=== PATIENT | female | born 1980 | race African-American/Black ===

== ENCOUNTER 2017-08-03 11:46 | Emergency (ER) | payer MEDICAID ==
[~2017-08-03 11:46] MED LIST: BENZ100 PO; CYCL1TAB29 PO; FERR325T PO; IBUP-232 PO; MMW SSP; PREN0.01 PO
[2017-08-03 11:48] VITALS: BP 161/89; PULSE 84; RESP 15; TEMP 98.4; O2SAT 100
[2017-08-03] MEDS ORDERED: NITROGLYCERIN 2% OINT 1 GM PACKET TOPICAL ONE (12:15)
[2017-08-03] MEDS ORDERED: SODIUM CHLORIDE 0.9% FLUSH 10 ML FLUSH IVF PRN (12:15)
[2017-08-03] MEDS ORDERED: ASPIRIN 325 MG TAB PO ONE (12:15)
[2017-08-03 12:48] VITALS: BP_SYST 130; BP_SYST 134; BP_DIAS 89; BP_DIAS 91; PULSE 68; PULSE 70; RESP 16; RESP 18; O2SAT 100; O2SAT 98
[2017-08-03 12:54] LABS: AUTOMATED NEUTROPHIL # 2.6 TH/MM3 (1.8-7.7); BASOPHIL % 0.8 % (0.0-2.0); EOSINOPHIL # 0.2 TH/MM3 (0-0.4); EOSINOPHIL % 3.8 % (0.0-4.0); HEMATOCRIT 28.3 % (35.0-46.0); HEMO FLAGS DIFF FINAL; LYMPHOCYTE # 2.1 TH/MM3 (1.0-4.8); MEAN CELL VOLUME 61.1 FL (80.0-100.0); MEAN CORPUSCULAR HEMOGLOBIN 18.2 PG (27.0-34.0); MONO % 7.6 % (0.0-8.0); NEUT % 48.8 % (16.0-70.0); PLATELET COUNT 319 TH/MM3 (150-450); RED BLOOD COUNT 4.62 MIL/MM3 (4.00-5.30); RED CELL DISTRIBUTION WIDTH 20.9 % (11.6-17.2); WHITE BLOOD COUNT 5.3 TH/MM3 (4.0-11.0)
[2017-08-03 12:55] LABS: MEAN CORPUSCULAR HGB CONC 29.8 % (32.0-36.0)
[2017-08-03 13:01] LABS: APTT (PATIENT) 25.3 SEC (24.3-30.1); PROTHROMBIN TIME - PATIENT 11.2 SEC (9.8-11.6)
--- NOTE | 2017-08-03 13:07 | PD ---
HPI Chief Complaint: Chest Pain Time Seen by Provider: 12:09 Travel History International Travel<30 days: No Contact w/Intl Traveler<30days: No Traveled to known affect area: No History of Present Illness HPI 37-year-old female patient with no significant past medical issues, presents to the ER today for midsternal chest pains which she currently rates at a 10 out of 10 with nausea. She denies any fevers, shortness of breath, diarrhea, coughing, or any other symptoms. She states that she had similar symptoms a few weeks ago and had been seen in the ER. Modifying Factors: None Associated Signs & Symptoms: Substernal chest pains Risk Factors: None PFSH Past Medical History Anemia: Yes Asthma: Yes Diminished Hearing: No Musculoskeletal: Yes (RIGHT KNEE DISLOCATION) Respiratory: Yes (bronchitis) ?: Not : 4 Para: 3 : 1 Past Surgical History Section: Yes (8 WKS AGO) Social History Alcohol Use: No (SOCIALLY) Tobacco Use: No Substance Use: No Allergies-Medications (Allergen,Severity, Reaction): Coded Allergies: doxycycline (Unverified Adverse Reaction, Severe, STOMACH ISSUES, 07/16/17) Reported Meds & Prescriptions Reported Meds & Active Scripts Active Ibuprofen 600 Mg Tab 600 Mg PO Q6H PRN Flexeril (Cyclobenzaprine HCl) 10 Mg Tab 10 Mg PO TID Tessalon Perles (Benzonatate) 100 Mg Cap 100 Mg PO TID PRN Magic Mouthwash-Diphenhy Formula (Lidocaine/Diphenhydr/Alum/Mg/Simeth) Ml 5-10 Ml SSP 5 TIMES A DAY PRN MAGIC MOUTHWASH CONTAINS 1/3 VISCOUS LIDOCAINE, 1/3 MAALOX, AND 1/3 BENADRYL. Iron (Ferrous Sulfate) 325 Mg Tab 325 Mg PO TID 30 Days Reported Vit ( Plus) (Prenat Multivit/Boat Carpenter/Iron/Folic Ac) Tab 1 Tab PO DAILY Review of Systems Except as stated in HPI: all other systems reviewed are Neg Physical Exam Narrative GENERAL: Well-developed middle age -[place] female patient currently in mild to moderate distress. Awake and oriented 3. SKIN: Focused skin assessment warm/dry. HEAD: Atraumatic. Normocephalic. EYES: Pupils equal and round. No scleral icterus. No injection or drainage. ENT: No nasal bleeding or discharge. Mucous membranes pink and moist. NECK: Trachea midline. No JVD. CARDIOVASCULAR: Regular rate and rhythm. No murmur appreciated. Pulses are present and equal bilaterally. RESPIRATORY: No accessory muscle use. Clear to auscultation. Breath sounds equal bilaterally. GASTROINTESTINAL: Abdomen soft, non-tender, nondistended. Hepatic and splenic margins not palpable. MUSCULOSKELETAL: No obvious deformities. No clubbing. No cyanosis. No edema. NEUROLOGICAL: Awake and alert. No obvious cranial nerve deficits. Motor grossly within normal limits. Normal speech. PSYCHIATRIC: Appropriate mood and affect; insight and judgment normal. Data Data Last Documented VS Vital Signs Date Time Temp Pulse Resp B/P (MAP) Pulse Ox O2 Delivery O2 Flow Rate FiO2 08/03/17 12:48 70 16 134/89 (104) 100 Room Air 08/03/17 11:48 98.4 Orders Orders Electrocardiogram (08/03/17 12:09) Ckmb (Isoenzyme) Profile (08/03/17 12:09) Complete Blood Count With Diff (08/03/17 12:09) Comprehensive Metabolic Panel (08/03/17 12:09) Magnesium (Mg) (08/03/17 12:09) Prothrombin Time / Inr (Pt) (08/03/17 12:09) Act Partial Throm Time (Ptt) (08/03/17 12:09) Troponin I (08/03/17 12:09) Lipase (08/03/17 12:09) Chest, Single Ap (08/03/17 12:09) Ecg Monitoring (08/03/17 12:09) Bilateral Bp Monitoring (08/03/17 12:09) Iv Access Insert/Monitor (08/03/17 12:09) Oximetry (08/03/17 12:09) Oxygen Administration (08/03/17 12:09) Sodium Chloride 0.9% Flush (Ns Flush) (08/03/17 12:15) Aspirin (Aspirin) (08/03/17 12:15) Nitroglycerin 2% Oint (Nitroglycerin 2% (08/03/17 12:15) CKMB (08/03/17 12:35) CKMB% (08/03/17 12:35) Labs Laboratory Tests Test 08/03/17 12:35 White Blood Count 5.3 TH/MM3 Red Blood Count 4.62 MIL/MM3 Hemoglobin 8.4 GM/DL Hematocrit 28.3 % Mean Corpuscular Volume 61.1 FL Mean Corpuscular Hemoglobin 18.2 PG Mean Corpuscular Hemoglobin Concent 29.8 % Red Cell Distribution Width 20.9 % Platelet Count 319 TH/MM3 Mean Platelet Volume 8.6 FL Neutrophils (%) (Auto) 48.8 % Lymphocytes (%) (Auto) 39.0 % Monocytes (%) (Auto) 7.6 % Eosinophils (%) (Auto) 3.8 % Basophils (%) (Auto) 0.8 % Neutrophils # (Auto) 2.6 TH/MM3 Lymphocytes # (Auto) 2.1 TH/MM3 Monocytes # (Auto) 0.4 TH/MM3 Eosinophils # (Auto) 0.2 TH/MM3 Basophils # (Auto) 0.0 TH/MM3 CBC Comment DIFF FINAL Differential Comment Prothrombin Time 11.2 SEC Prothromb Time International Ratio 1.0 RATIO Activated Partial Thromboplast Time 25.3 SEC Blood Urea Nitrogen 15 MG/DL Creatinine 0.92 MG/DL Random Glucose 82 MG/DL Total Protein 7.8 GM/DL Albumin 3.5 GM/DL Calcium Level 9.0 MG/DL Magnesium Level 2.2 MG/DL Alkaline Phosphatase 40 U/L Aspartate Amino Transf (AST/SGOT) 27 U/L Alanine Aminotransferase (ALT/SGPT) 21 U/L Total Bilirubin 0.3 MG/DL Sodium Level 137 MEQ/L Potassium Level 4.3 MEQ/L Chloride Level 108 MEQ/L Carbon Dioxide Level 22.5 MEQ/L Anion Gap 7 MEQ/L Estimat Glomerular Filtration Rate 82 ML/MIN Total Creatine Kinase 170 U/L Creatine Kinase MB 1.3 NG/ML Troponin I LESS THAN 0.02 NG/ML Lipase 187 U/L MDM Medical Decision Making Medical Screen Exam Complete: Yes Emergency Medical Condition: Yes Medical Record Reviewed: Yes Interpretation(s) EKG shows NSR, no ST elevation or depression, and no arrhythmias. No significant T-wave inversions. Laboratory Tests Test 08/03/17 12:35 Hemoglobin 8.4 GM/DL (11.6-15.3) Hematocrit 28.3 % (35.0-46.0) Mean Corpuscular Volume 61.1 FL (80.0-100.0) Mean Corpuscular Hemoglobin 18.2 PG (27.0-34.0) Mean Corpuscular Hemoglobin Concent 29.8 % (32.0-36.0) Red Cell Distribution Width 20.9 % (11.6-17.2) Alkaline Phosphatase 40 U/L (45-117) Chloride Level 108 MEQ/L (98-107) Estimat Glomerular Filtration Rate 82 ML/MIN (>89) Troponin I LESS THAN 0.02 NG/ML Last 24 hours Impressions Chest X-Ray 08/03/17 1209 Signed Impressions: Service Date/Time: Thursday, August 03, 2017 12:54 - CONCLUSION: No acute disease. Troy Abdalla MD Differential Diagnosis Chest pains: ACS versus dysrhythmias versus anxiety attack versus GI Narrative Course Chest x-ray does not show any signs of acute pulmonary processes. Vital signs are stable. EKG did not show any significant dysrhythmias or ST changes. Cardiac enzymes are unremarkable. On reevaluation after patient was given aspirin and nitroglycerin, at 1:45 PM, patient reports feeling improved. At this point, I have talked to the patient regarding findings and have talked to her regarding her chest pains and have recommended chest pain center. At this point, patient is declining, would prefer to follow-up as an outpatient. I have talked her about the fact that I cannot rule out underlying cardiac processes or even ACS without further evaluation and studies and patient will need further provocative testing including cardiac ultrasound and stress testing in order to evaluate her heart. Patient states understanding and will need to follow up with cardiology for this issue. The risks were discussed with the patient and she states understanding and would prefer outpatient evaluation. Diagnosis Primary Impression: Chest pain Disposition: 01 DISCHARGE HOME Condition: Stable Alejandra Goldsmith MD Aug 03, 2017 13:07
[2017-08-03 13:25] LABS: ALKALINE PHOSPHATASE 40 U/L (45-117); ALT (GPT) 21 U/L (10-53); ANION GAP 7 MEQ/L (5-15); AST (GOT) 27 U/L (15-37); BICARBONATE 22.5 MEQ/L (21.0-32.0); BLOOD UREA NITROGEN 15 MG/DL (7-18); CHLORIDE 108 MEQ/L (98-107); CREATINE KINASE 170 U/L (26-192); GLOMERULAR FILTRATION RATE 82 ML/MIN (>89); MAGNESIUM 2.2 MG/DL (1.5-2.5); SODIUM (NA) 137 MEQ/L (136-145); TOTAL BILIRUBIN ADULT 0.3 MG/DL (0.2-1.0)
--- NOTE | 2017-08-03 13:28 | RADRPT ---
EXAM DATE/TIME: 08/03/2017 12:54 [facility] COMPARISON: CHEST SINGLE AP, July 16, 2017, 9:32. INDICATIONS : Chest pains with pressure mid sternal. MEDICAL HISTORY : None. SURGICAL HISTORY : None. ENCOUNTER: Initial ACUITY: 1 day PAIN SCORE: 8/10 LOCATION: Bilateral chest FINDINGS: A single view of the chest demonstrates the lungs to be symmetrically aerated without evidence of mas s, infiltrate or effusion. The cardiomediastinal contours are unremarkable. Osseous structures are intact. CONCLUSION: No acute disease. Troy Abdalla MD on August 03, 2017 at 13:25 Board Certified Radiologist. This report was verified electronically.
[2017-08-03 13:29] LABS: POTASSIUM 4.3 MEQ/L (3.5-5.1)
[2017-08-03 13:44] LABS: CKMB 1.3 NG/ML (0.5-3.6)
[2017-08-03 14:20] VITALS: BP 140/79
--- NOTE | 2017-08-04 14:36 | EKG ---
Date Performed: 08/03/2017 Time Performed: 12:22:17 PTAGE: 37 years EKG: Sinus rhythm NORMAL ECG Compared to prior tracing no significant change PREVIOUS TRACING DOCTOR: John Blakely Interpretating Date/Time 08/04/2017 14:33:10
== END 2017-08-03 14:23 | disposition home or self-care (01) ==
LOC: NEPE 11:46
DX: R07.9 Chest pain, unspecified (principal); D64.9 Anemia, unspecified; J45.909 Unspecified asthma, uncomplicated; Z79.899 Other long term (current) drug therapy; Z88.8 Allergy status to other drugs, medicaments and biological substances
CPT/HCPCS: 71010; 80053; 82550; 82552; 83690; 83735; 84484; 85025; 85610; 85730; 93005; 99285

== ENCOUNTER 2017-12-23 18:00 | Emergency (ER) | payer MEDICAID ==
[~2017-12-23] VITALS: Ht 170.2 cm; Wt 98.5 kg
[~2017-12-23 18:00] MED LIST changes: +CYCL10TA PO; -CYCL1TAB29 PO
[2017-12-23 18:02] VITALS: BP 131/94; PULSE 92; RESP 18; TEMP 98.2; O2SAT 99
[2017-12-23 19:13] LABS: BASOPHIL % 0.4 % (0.0-2.0); EOSINOPHIL # 0.3 TH/MM3 (0-0.4); EOSINOPHIL % 4.4 % (0.0-4.0); HEMATOCRIT 31.7 % (35.0-46.0); HEMOGLOBIN 9.9 GM/DL (11.6-15.3); LYMPH % 27.4 % (9.0-44.0); LYMPHOCYTE # 1.8 TH/MM3 (1.0-4.8); MEAN CELL VOLUME 74.7 FL (80.0-100.0); MEAN CORPUSCULAR HEMOGLOBIN 23.4 PG (27.0-34.0); MEAN CORPUSCULAR HGB CONC 31.4 % (32.0-36.0); MEAN PLATELET VOLUME 7.7 FL (7.0-11.0); MONO % 7.3 % (0.0-8.0); MONOCYTE # 0.5 TH/MM3 (0-0.9); NEUT % 60.5 % (16.0-70.0); PLATELET COUNT 301 TH/MM3 (150-450); RED BLOOD COUNT 4.25 MIL/MM3 (4.00-5.30); WHITE BLOOD COUNT 6.7 TH/MM3 (4.0-11.0)
[2017-12-23 19:23] LABS: BICARBONATE 27.2 MEQ/L (21.0-32.0); BLOOD UREA NITROGEN 14 MG/DL (7-18); CALCIUM 9.1 MG/DL (8.5-10.1); CHLORIDE 107 MEQ/L (98-107); CREATININE 0.99 MG/DL (0.50-1.00); GLOMERULAR FILTRATION RATE 76 ML/MIN (>89); GLUCOSE,RANDOM 107 MG/DL (74-106); SODIUM (NA) 138 MEQ/L (136-145)
[2017-12-23 19:27] LABS: TROPONIN I LESS THAN 0.02 NG/ML (0.02-0.05)
--- NOTE | 2017-12-24 09:21 | EKG ---
Date Performed: 12/23/2017 Time Performed: 18:24:43 PTAGE: 37 years EKG: Sinus rhythm POSSIBLE LEFT ATRIAL ENLARGEMENT BORDERLINE ECG PREVIOUS TRACING : 08/03/2017 12.22 No change from previous tracing noted. DOCTOR: Fabio Mcmahon Interpretating Date/Time 12/24/2017 09:20:46
== END 2017-12-23 20:09 | disposition left against medical advice (07) ==
LOC: NED 18:00
DX: R07.9 Chest pain, unspecified (principal)
CPT/HCPCS: 80048; 82550; 82552; 84484; 85025; 93005; 99281

== ENCOUNTER 2018-01-19 10:48 | Emergency (ER) | payer MEDICAID ==
[2018-01-19 10:52] VITALS: BP 135/74; PULSE 103; RESP 16; TEMP 98.2; O2SAT 98
[2018-01-19 11:29] LABS: AUTOMATED NEUTROPHIL # 1.9 TH/MM3 (1.8-7.7); BASOPHIL % 0.4 % (0.0-2.0); EOSINOPHIL % 0.2 % (0.0-4.0); HEMATOCRIT 31.4 % (35.0-46.0); LYMPH % 21.9 % (9.0-44.0); LYMPHOCYTE # 0.7 TH/MM3 (1.0-4.8); MEAN CELL VOLUME 72.7 FL (80.0-100.0); MEAN CORPUSCULAR HEMOGLOBIN 23.2 PG (27.0-34.0); MEAN CORPUSCULAR HGB CONC 31.9 % (32.0-36.0); MEAN PLATELET VOLUME 7.9 FL (7.0-11.0); MONO % 17.3 % (0.0-8.0); MONOCYTE # 0.6 TH/MM3 (0-0.9); NEUT % 60.2 % (16.0-70.0); PLATELET COUNT 248 TH/MM3 (150-450); RED BLOOD COUNT 4.31 MIL/MM3 (4.00-5.30); RED CELL DISTRIBUTION WIDTH 17.4 % (11.6-17.2); WHITE BLOOD COUNT 3.2 TH/MM3 (4.0-11.0)
[2018-01-19 11:42] LABS: BICARBONATE 24.2 MEQ/L (21.0-32.0); CALCIUM 8.8 MG/DL (8.5-10.1)
[2018-01-19] MEDS ORDERED: OSEL75 PO (12:09)
--- NOTE | 2018-01-19 12:10 | PD ---
HPI Chief Complaint: Cold / Flu Symptoms Time Seen by Provider: 11:36 Travel History International Travel<30 days: No Contact w/Intl Traveler<30days: No Traveled to known affect area: No History of Present Illness HPI Patient is a 37-year-old female presents emergency department with fever nausea vomiting body aches cough and congestion for the past 36-48 hours. Patient states she did not get a flu shot this year. States symptoms are gradually worsening. 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 States symptoms are moderate. PFSH Past Medical History Anemia: Yes Asthma: Yes Diminished Hearing: No Musculoskeletal: Yes (RIGHT KNEE DISLOCATION) Respiratory: Yes (bronchitis) Tetanus Vaccination: > 5 Years ?: Not LMP: 12/26/2017 : 4 Para: 3 : 1 Past Surgical History Section: Yes Social History Alcohol Use: No (SOCIALLY) Tobacco Use: No Substance Use: No Allergies-Medications (Allergen,Severity, Reaction): Coded Allergies: doxycycline (Unverified Adverse Reaction, Severe, STOMACH ISSUES, 01/19/18) Reported Meds & Prescriptions Reported Meds & Active Scripts Active Zofran Odt (Ondansetron Odt) 4 Mg Tab 4 Mg SL Q6HR PRN Tamiflu (Oseltamivir Phosphate) 75 Mg Cap 75 Mg PO BID 5 Days Review of Systems Except as stated in HPI: all other systems reviewed are Neg Physical Exam Narrative GENERAL: Well-developed well-nourished, no obvious distress. SKIN: Focused skin assessment warm/dry. HEAD: Atraumatic. Normocephalic. EYES: Pupils equal and round. No scleral icterus. No injection or drainage. ENT: No nasal bleeding or discharge. Mucous membranes pink and moist. TMs clear bilaterally, oropharynx clear moist NECK: Trachea midline. No JVD. CARDIOVASCULAR: Regular rate and rhythm. No murmur appreciated. RESPIRATORY: No accessory muscle use. Clear to auscultation. Breath sounds equal bilaterally. GASTROINTESTINAL: Abdomen soft, non-tender, nondistended. Hepatic and splenic margins not palpable. MUSCULOSKELETAL: No obvious deformities. No clubbing. No cyanosis. No edema. NEUROLOGICAL: Awake and alert. No obvious cranial nerve deficits. Motor grossly within normal limits. Normal speech. PSYCHIATRIC: Appropriate mood and affect; insight and judgment normal. Data Data Last Documented VS Vital Signs Date Time Temp Pulse Resp B/P (MAP) Pulse Ox O2 Delivery O2 Flow Rate FiO2 01/19/18 12:31 01/19/18 10:52 98.2 103 16 98 Orders Orders Complete Blood Count With Diff (01/19/18 11:00) Basic Metabolic Panel (Bmp) (01/19/18 11:00) Influenzae A/B Antigen (01/19/18 11:00) Ed Discharge Order (01/19/18 12:16) Labs Laboratory Tests Test 01/19/18 11:10 White Blood Count 3.2 TH/MM3 Red Blood Count 4.31 MIL/MM3 Hemoglobin 10.0 GM/DL Hematocrit 31.4 % Mean Corpuscular Volume 72.7 FL Mean Corpuscular Hemoglobin 23.2 PG Mean Corpuscular Hemoglobin Concent 31.9 % Red Cell Distribution Width 17.4 % Platelet Count 248 TH/MM3 Mean Platelet Volume 7.9 FL Neutrophils (%) (Auto) 60.2 % Lymphocytes (%) (Auto) 21.9 % Monocytes (%) (Auto) 17.3 % Eosinophils (%) (Auto) 0.2 % Basophils (%) (Auto) 0.4 % Neutrophils # (Auto) 1.9 TH/MM3 Lymphocytes # (Auto) 0.7 TH/MM3 Monocytes # (Auto) 0.6 TH/MM3 Eosinophils # (Auto) 0.0 TH/MM3 Basophils # (Auto) 0.0 TH/MM3 CBC Comment DIFF FINAL Differential Comment Blood Urea Nitrogen 8 MG/DL Creatinine 0.92 MG/DL Random Glucose 104 MG/DL Calcium Level 8.8 MG/DL Sodium Level 138 MEQ/L Potassium Level 3.6 MEQ/L Chloride Level 105 MEQ/L Carbon Dioxide Level 24.2 MEQ/L Anion Gap 9 MEQ/L Estimat Glomerular Filtration Rate 82 ML/MIN MDM Medical Decision Making Medical Screen Exam Complete: Yes Emergency Medical Condition: Yes Differential Diagnosis Influenza, URI, pneumonia unlikely, Narrative Course Patient room to the emergency department, has mild anemia, otherwise she appears well and she is low risk for adverse outcome from outpatient therapy with Tamiflu. Discussed Tamiflu with her, also will be given a prescription of Zofran. Discussed return to ED criteria, discussed when she can return to work she has been given a work notice. She is stable for discharge Diagnosis Primary Impression: Influenza A Departure Forms: Tests/Procedures, Work Release Enter return to work date: Jan 26, 2018 Med/Other Pt SpecificInfo: Prescription(s) given Scripts Ondansetron Odt (Zofran Odt) 4 Mg Tab 4 MG SL Q6HR Y for Nausea/Vomiting, #30 TAB 0 Refills Prov: Nico Gutierrez MD 01/19/18 Oseltamivir (Tamiflu) 75 Mg Cap 75 MG PO BID for Mgmt Viral Infection for 5 Days, #10 CAP 0 Refills Prov: Nico Gutierrez MD 01/19/18 Disposition: 01 DISCHARGE HOME Condition: Stable Nico Gutierrez MD Jan 19, 2018 12:09
[2018-01-19] MEDS ORDERED: ZOFR4TAB3 SL (12:15)
[2018-01-19 12:55] LABS: CREATININE 0.92 MG/DL (0.50-1.00)
== END 2018-01-19 12:32 | disposition home or self-care (01) ==
LOC: NEPD 10:48
DX: J10.1 Influenza due to other identified influenza virus with other respiratory manifestations (principal); J45.909 Unspecified asthma, uncomplicated; D64.9 Anemia, unspecified
CPT/HCPCS: 80048; 85025; 87804; 99283

== ENCOUNTER 2018-04-23 12:36 | Emergency (ER) | payer MEDICAID ==
[~2018-04-23] VITALS: Ht 170.2 cm; Wt 96.8 kg
[~2018-04-23 12:36] MED LIST changes: -BENZ100 PO; -CYCL10TA PO; -FERR325T PO; -IBUP-232 PO; -MMW SSP; +OSEL75 PO; -PREN0.01 PO; +ZOFR4TAB3 SL
[2018-04-23 12:43] VITALS: BP 140/91; PULSE 88; RESP 18; TEMP 98.8; O2SAT 100
[2018-04-23] MEDS ORDERED: SODIUM CHLORIDE 0.9% FLUSH 10 ML FLUSH IV FLUSH PRN (13:30)
[2018-04-23 13:32] VITALS: O2SAT 97
[2018-04-23 13:44] LABS: AUTOMATED NEUTROPHIL # 4.8 TH/MM3 (1.8-7.7); BASOPHIL % 0.7 % (0.0-2.0); EOSINOPHIL # 0.2 TH/MM3 (0-0.4); EOSINOPHIL % 2.3 % (0.0-4.0); HEMATOCRIT 24.6 % (35.0-46.0); HEMOGLOBIN 7.5 GM/DL (11.6-15.3); LYMPH % 21.6 % (9.0-44.0); LYMPHOCYTE # 1.5 TH/MM3 (1.0-4.8); MEAN CORPUSCULAR HEMOGLOBIN 18.9 PG (27.0-34.0); MEAN CORPUSCULAR HGB CONC 30.5 % (32.0-36.0); MEAN PLATELET VOLUME 8.5 FL (7.0-11.0); MONO % 6.5 % (0.0-8.0); MONOCYTE # 0.5 TH/MM3 (0-0.9); NEUT % 68.9 % (16.0-70.0); PLATELET COUNT 337 TH/MM3 (150-450); RED BLOOD COUNT 3.97 MIL/MM3 (4.00-5.30); RED CELL DISTRIBUTION WIDTH 20.6 % (11.6-17.2)
[2018-04-23 14:07] LABS: ALBUMIN 3.4 GM/DL (3.4-5.0); ALKALINE PHOSPHATASE 42 U/L (45-117); ALT (GPT) 20 U/L (10-53); AST (GOT) 32 U/L (15-37); BICARBONATE 22.8 MEQ/L (21.0-32.0); BLOOD UREA NITROGEN 13 MG/DL (7-18); CALCIUM 8.6 MG/DL (8.5-10.1); CHLORIDE 109 MEQ/L (98-107); CREATININE 0.97 MG/DL (0.50-1.00); GLOMERULAR FILTRATION RATE 77 ML/MIN (>89); GLUCOSE,RANDOM 87 MG/DL (74-106); SODIUM (NA) 140 MEQ/L (136-145); TOTAL BILIRUBIN ADULT 0.3 MG/DL (0.2-1.0); TOTAL PROTEIN 7.3 GM/DL (6.4-8.2)
[2018-04-23] MEDS ORDERED: OMEP40CA2 PO (17:06)
--- NOTE | 2018-04-23 17:06 | PD ---
HPI Chief Complaint: GI Complaint Time Seen by Provider: 13:10 Travel History International Travel<30 days: No Contact w/Intl Traveler<30days: No Traveled to known affect area: No History of Present Illness HPI Is a 38-year-old woman who presents to the emergency department complaining of right upper quadrant abdominal pain rating to her back and shoulder blade. She was last well about a month or so ago. She has had intermittent epigastric pain with reflux and burning in her chest since then. Over the past week she has had more of this right upper quadrant pain that radiates to the back. Over the past couple days she has been sick with cough cold symptoms and associated diarrhea. She has had 2 C-sections but no other abdominal surgeries. She otherwise had been feeling pretty well and healthy. She took some Zantac which helped a little bit but did not last very long. No other complaints. History Past Medical History Medical History: Denies Significant Hx LMP: 04/02/18 : 4 Para: 3 Social History Alcohol Use: No (SOCIALLY) Tobacco Use: No Allergies-Medications (Allergen,Severity, Reaction): Coded Allergies: doxycycline (Unverified Adverse Reaction, Severe, STOMACH ISSUES, 04/23/18) Reported Meds & Prescriptions Reported Meds & Active Scripts Active Review of Systems Except as stated in HPI: all other systems reviewed are Neg Physical Exam Narrative GENERAL: Well-appearing 38-year-old woman, no acute distress. SKIN: Focused skin assessment warm/dry. HEAD: Atraumatic. Normocephalic. EYES: Pupils equal and round. No scleral icterus. No injection or drainage. ENT: No nasal bleeding or discharge. Mucous membranes pink and moist. NECK: Trachea midline. No JVD. CARDIOVASCULAR: Regular rate and rhythm. No murmur appreciated. RESPIRATORY: No accessory muscle use. Clear to auscultation. Breath sounds equal bilaterally. GASTROINTESTINAL: Abdomen is obese and soft. Mild epigastric tenderness and right upper quadrant tenderness. Negative Mccann's. MUSCULOSKELETAL: No obvious deformities. No edema. NEUROLOGICAL: Awake and alert. No obvious cranial nerve deficits. Motor grossly within normal limits. Normal speech. PSYCHIATRIC: Appropriate mood and affect; insight and judgment normal. Data Data Last Documented VS Vital Signs Date Time Temp Pulse Resp B/P (MAP) Pulse Ox O2 Delivery O2 Flow Rate FiO2 04/23/18 13:32 97 Nasal Cannula 2.00 04/23/18 13:02 18 04/23/18 12:43 98.8 88 140/91 (107) Orders Orders Complete Blood Count With Diff (04/23/18 13:16) Comprehensive Metabolic Panel (04/23/18 13:16) Lipase (04/23/18 13:16) Us Abdomen Gallbladder (04/23/18 ) Iv Access Insert/Monitor (04/23/18 13:16) Ecg Monitoring (04/23/18 13:16) Oximetry (04/23/18 13:16) Sodium Chloride 0.9% Flush (Ns Flush) (04/23/18 13:30) Ed Urine Pregnancytest Poc (04/23/18 13:16) Labs Laboratory Tests Test 04/23/18 13:28 White Blood Count 7.0 TH/MM3 Red Blood Count 3.97 MIL/MM3 Hemoglobin 7.5 GM/DL Hematocrit 24.6 % Mean Corpuscular Volume 62.0 FL Mean Corpuscular Hemoglobin 18.9 PG Mean Corpuscular Hemoglobin Concent 30.5 % Red Cell Distribution Width 20.6 % Platelet Count 337 TH/MM3 Mean Platelet Volume 8.5 FL Neutrophils (%) (Auto) 68.9 % Lymphocytes (%) (Auto) 21.6 % Monocytes (%) (Auto) 6.5 % Eosinophils (%) (Auto) 2.3 % Basophils (%) (Auto) 0.7 % Neutrophils # (Auto) 4.8 TH/MM3 Lymphocytes # (Auto) 1.5 TH/MM3 Monocytes # (Auto) 0.5 TH/MM3 Eosinophils # (Auto) 0.2 TH/MM3 Basophils # (Auto) 0.0 TH/MM3 CBC Comment DIFF FINAL Differential Comment Blood Urea Nitrogen 13 MG/DL Creatinine 0.97 MG/DL Random Glucose 87 MG/DL Total Protein 7.3 GM/DL Albumin 3.4 GM/DL Calcium Level 8.6 MG/DL Alkaline Phosphatase 42 U/L Aspartate Amino Transf (AST/SGOT) 32 U/L Alanine Aminotransferase (ALT/SGPT) 20 U/L Total Bilirubin 0.3 MG/DL Sodium Level 140 MEQ/L Potassium Level 4.3 MEQ/L Chloride Level 109 MEQ/L Carbon Dioxide Level 22.8 MEQ/L Anion Gap 8 MEQ/L Estimat Glomerular Filtration Rate 77 ML/MIN Lipase 168 U/L [facility] Medical Decision Making Medical Screen Exam Complete: Yes Emergency Medical Condition: Yes Interpretation(s) LABS: CBC remarkable for moderate anemia, microcytic indices. CMP generally unremarkable. Lipase is normal. Differential Diagnosis Anemia, cholecystitis, gastritis, peptic ulcer disease, pancreatitis, other Narrative Course Medical decision making 38-year-old woman with epigastric abdominal pain, likely gastritis, possible cholecystitis. Ultrasound was done. Initial report is for gallstones. Awaiting formal read. Patient also with microcytic anemia. Patient had microcytic anemia as well as menorrhagia. She says she has been able take her iron because of her indigestion symptoms. Recommend PPI, iron, close outpatient follow-up. Diagnosis Primary Impression: Gastritis Additional Impressions: Cholelithiasis Anemia Patient Instructions: General Instructions Additional Instructions: Take iron daily as prescribed. Take omeprazole as prescribed. Follow with her primary doctor this week. Return to the emergency department for any worsening pain, vomiting, or any other new or worsening symptoms. Med/Other Pt SpecificInfo: Prescription(s) given Scripts Omeprazole (Omeprazole) 40 Mg Cap 40 MG PO DAILY, #30 CAP 0 Refills Prov: Jose G Ellis MD 04/23/18 Disposition: 01 DISCHARGE HOME Condition: Stable Jose G Ellis MD April 23, 2018 17:06
--- NOTE | 2018-04-23 17:06 | RADRPT ---
EXAM DATE: 04/23/2018 2:11 PM EDT AGE/SEX: 38 years / Female INDICATIONS: RUQ pain. CLINICAL DATA: This is the patient's subsequent encounter. Patient reports that signs and/or symptom s have been present for 2 weeks and indicates a pain score of 9/10. MEDICAL/SURGICAL HISTORY: . Asthma. Anemia. Bronchitis. section. RT knee arthroscopy. COMPARISON: Gallbladder ultrasound June 07, 2012 MEASUREMENTS (cm x cm x cm): Liver:__ 18.4 cm length Common Bile Duct:__ 3mm FINDINGS: Liver: Coarse echotexture suggesting fatty change or diffuse hepatocellular process. Portal Vein: Hepatopedal flow seen in portal vein. Common Duct: No intralumincal mass or stone visualized. Gallbladder: 2 calcified gallstones within the gallbladder each measuring approximately 1.5 cm in si ze. The gallbladder is decompressed. No wall thickening or pericholecystic fluid.. Pancreas: The visualized portions are within normal limits Right Kidney: No mass or hydronephrosis Other: None. CONCLUSION: 1. Cholelithiasis without sonographic evidence to suggest acute cholecystitis. Electronically signed by: Jesús Art MD 04/23/2018 5:05 PM EDT
[2018-04-23] MEDS ORDERED: IRON SUCROSE INJ 200 MG in SODIUM CHLORIDE 0.9% INJ 100 ML IV ONE (17:15)
[2018-04-23 17:43] VITALS: BP 130/78; PULSE 77; RESP 18; O2SAT 97
[2018-04-23] MEDS ORDERED: oxyCODONE/ACETAMINOPHEN 5 MG/325 MG TAB PO ONE (19:00)
== END 2018-04-23 19:05 | disposition home or self-care (01) ==
LOC: NEPD 12:36
DX: K29.70 Gastritis, unspecified, without bleeding (principal); K80.20 Calculus of gallbladder without cholecystitis without obstruction; D64.9 Anemia, unspecified
CPT/HCPCS: 76705; 80053; 83690; 84703; 85025; 96365; 99284; J1756